=== PATIENT | male | born 1945 | race Caucasian/White ===

== ENCOUNTER → 2021-03-25 11:32 | Outpatient (CLI) | payer MEDICARE, OTHER, SELFPAY | PROVIDERS: PCP Family Medicine; Referring Provider Orthopaedic Surgery Orthopaedic Surgery of the Spine; Visit Provider Orthopaedic Surgery Orthopaedic Surgery of the Spine | DX: Z01.818 Encounter for other preprocedural examination (principal) | CPT/HCPCS: 93005; 93010 ==

== ENCOUNTER 2021-04-01 07:41 | Inpatient (IN) | payer MEDICARE, OTHER, SELFPAY ==
[2021-03-24 08:56] VITALS: BMI 31.4
[2021-04-01] VITALS (14 sets, daily range): BP systolic 109–148; BP diastolic 59–75; PULSE 68–100; RESP 10–18; TEMP 36.3–37; O2SAT 94–98; BMI 31.4
--- NOTE | 2021-04-01 | DI.RAD.S_ITS ---
PROCEDURE: XR LUMBAR SPINE 2-3V INDICATIONS: L3-4 L4-5 TLIF TECHNIQUE: 3 views of the lumbar spine were acquired. COMPARISON: None. FINDINGS: Bones: Intraoperative fluoroscopic views demonstrate pedicular screw and hernan fixation of the lumbar spine. IMPRESSION: Intraoperative fluoroscopic views of pedicular screw and hernan fixation of the lumbar spine. Dictated by: Isai Ruiz M.D. on 04/01/2021 at 15:15 Approved by: Isai Ruiz M.D. on 04/01/2021 at 15:15
--- NOTE | 2021-04-01 08:07 | SUR.OPER ---
Prone on spine table, head in foam head support, padded chest and pelvic supports, gel pad at knees, lower legs supported by pillows; nipples, genitalia and toes free of pressure, arms secured on foam padded arm boards at <90 degrees abduction. Tape over blanket at thigh secured to table.
[2021-04-01] MEDS: LACTATED RINGERS 1,000 ML 42 ML IV ×2 (08:35→11:43)
--- NOTE | 2021-04-01 08:52 | PM.PREOP ---
Pre-operative Note COVID-19 COVID-19 status: Negative Result date/Date tested (Pos, Neg/Pending): 03/30/21 Interval Note History & Physical reviewed/Exam performed by Physician: Yes Changes to H&P: No
[2021-04-01] MEDS: CEFAZOLIN 2 GM/20 ML SYRINGE IV ×2 (09:10→16:21)
[2021-04-01] MEDS: BUPIVACAINE 0.25% W/ EPI 30 ML VIAL INJ (09:56)
[2021-04-01] MEDS: BUPIVACAINE LIPOSOME 266 MG/20 ML VIAL INJ (09:57)
--- NOTE | 2021-04-01 13:33 | PM.OP.1 ---
Operative Date/Time/Diagnoses Date of procedure: 04/01/21 Time of procedure: 07:45 Pre-op diagnosis: 1. 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 Hx of laminectomies with post laminectomy syndrome 3. Lumbar scoliosis Post-op diagnosis: same Procedure & Clinicians Procedure: 1. L3-4, L4-5 Postero-lateral and posterior interbody fusion 2. L3-4, L4-5 interbody cage placement. 3. L3-4, L4-5 decompressive laminectomy with bilateral facetecomies 4. L3-4, L4-5 Posterior segmental instrumentation 5. Yeaddiss of bone marrow from iliac crest 6. Utilization of microsurgical technique and operating microscope 7. Robotic assisted navigation surgery Same procedure as scheduled: Yes Indications: Patient has been having chronic back pain and worsening lumbar radiculopathy. Patient has a history of lumbar laminectomy more than 15 years ago with worsening back pain and leg pain. Patient failed multiple conservative management with worsening pain weakness and numbness in his lower extremity. Patient has been having difficulty performing activity of daily living. After discussing risks benefits of treatment options, patient elected proceed with surgery. Surgeon: Luis Manuel Schilling Hydrotherapist: Erich Andrade Click Yes if Unassisted: No Anesthesia Type: General Operative Notes Closure Type: primary Specimen(s): none sent Prosthetic devices, grafts, tissues, transplants, or devices: Globus CREO MIS screws, Rise cages Applied: catheter Estimated Blood Loss (mL): 150 Blood products transfused: none Procedure in detail: Patient was seen in the preoperative area. Risks and benefits of the surgery was discussed with the patient. Informed consent was obtained from the patient and placed in the chart. Surgical site was marked. Patient was taken to the operative room. General anesthesia was administered. Prophylactic antibiotic was given to the patient less than 30 min before the incision was made. Patient was placed into a prone position on the Yonny table. Patient's back was then prepped and draped in the sterile fashion. Time-out was performed at this time. After patient was prepped and draped, patient's PSIS was palpated and marked bilaterally. Small 1 cm incision was made over the PSIS for placement of the reference probes. Two trocar was placed into the PSIS 1 on each side. The reference probe was attached to the trocar of the reference apparatus. At this time the C-arm imaging was used to confirm AP and lateral of L3, L4-L5 vertebrae and merged the C-arm imaging using the [employer] robotic navigation system with the CT of the lumbar spine. After successful merging was completed and confirmed, skin marker was used to tobi out the skin incision using the [employer] robotic arm. Bilateral incision was made at this time. Pre templated trajectory was used and guided using the [employer] robotic navigation system for bilateral L3 L4, L5 pedicle screw placement. This was done by using the robotic arm to guide the high-speed bur to make a cortical entry point. Next a drill was placed also using the robotic arm and guided using the navigation system drilling partially through bilateral L3, L4, L5 pedicles. Next L3, L4, L5 pedicle screws it was pre templated and measured was placed onto the power double bottom driver and inserted into the pedicles bilaterally. After all 6 screws were placed C-arm imaging was taken of both AP and lateral to confirm the placement. Excellent placement of the screws were confirmed and a matched precisely with the pre planned screw placement using the navigation system. MARs retractor was inserted using [employer]ivation guidence. Globus MARS retractors was placed inside the incision and docked onto the L3, L4 lamina. Using microsurgical technique and operating microscope, a L4, L5 laminectomy and L3-4, L4-5 facetectomy was performed using a Kerrison rongeur. Patient was found have severe lateral recess and neural foramen stenosis which was fully decompressed after the laminectomy facetectomy. More than 75% of the facets were removed during the process of decompression rendering L3-4, L4-5 level grossly unstable and required a fusion procedure at the same time. The disc space at L3-4, L4-5 was identified, and a total diskectomy was performed at L3-4, L4-5 level. The endplates were decorticated using a rasp and shaver. The total diskectomy and decortication was performed at L3-4, L4-5 level in order to to accomplish a L3-4, L4-5 fusion. The local bone from the laminectomy and facetectomy was saved for local bone grafting. After the total diskectomy and decortication was completed, Trifecta bone graft material was combined with local bone that was harvested earlier. Patient was found to have significant amount of epidural scarring from previous laminectomy. The scar tissue was carefully resected to further decompress the epidural space and lateral recess. At this time, a separate skin is incision was made over the iliac crest. A Jamshidi needle was inserted into the iliac crest through a separate skin incision. 5 cc of bone marrow aspiration was obtained through the separate skin incision using a Jamshidi needle from the iliac crest. The bone marrow aspiration was combined with local bone and the Trifecta bone grafting material. The bone grafting material was placed into the L3-4, L4-5 interbody space along with expandable cages. One cage each was inserted into the L3-4 L4-5 interbody space along with bone graft material. The cage was expanded to its maximum height using the torque limiting screwdriver. The disc preparation as well as the cage insertion were also performed under navigation guidance. After the cage was placed, AP and lateral C-arm imaging was taken to confirm placement of the cage and excellent position was confirmed. Globus MARS retractor was inserted and docked onto the L3-4, L4-5 posterolateral gutter on the right side. Using the power drill, posterior-lateral decortication was performed at L3-4, L4-5 level until bleeding cortical bone was identified. The remaining bone grafting material was placed into the L3-4, L4-5 posterior lateral gutter he order to accomplish posterolateral fusion at the L3-4, L4-5 level. At this time the tulips were attached to the L3, L4-L5 pedicle screw shanks. After measuring the length of the rods, they were inserted into the tulips of the pedicle screws and locked in place using locking caps and torque limiting screwdriver bilaterally. Total 6 caps and 2 titanium rods was used in order to complete the posterior instrumentation construct. After all the hardware was placed, and confirmed with AP and lateral C-arm imaging, the wound was then irrigated with sterile normal saline and packed with Ray-Chava gauze for 3 min to accomplish hemostasis. After the gauze was removed the deep fascia was closed with #1 Vicryl suture. The subcutaneous layer was closed with 2-0 Vicryl. The skin was closed with skin pebbles. Patient tolerated the procedure well. There were no complications. Neuro monitoring system was used to monitor patient's neurologic status throughout entire procedure. There was no disturbance of the neural monitoring signals throughout the case. Complications: none Post-operative Condition: stable Disposition: PACU Plan for aftercare: Admit to inpatient hospital
[2021-04-01] MEDS: fentaNYL 100 MCG/2 ML INJ IV (14:06)
[2021-04-01] MEDS: OXYCODONE/ACETAMINOPHEN 5/325 TABLET 1 TAB PO (14:29)
--- NOTE | 2021-04-01 14:49 | PC.NURSE ---
Day shift: Pt on unit from PACu at approx 1450. He is sleepy but is also A&Ox4. Dressing on his back is CDI. CMS intact. 2L NC 97%. VS WNL. Tolerating sips of ice water. Denies any chest pain or nausea. He was medicated with percocet in PACU just prior to transfer. Tolerated foot SCD's. Is complaining of itching in left eye. Bed alarm is on. Agrees to not get OOB w/o help from staff.
--- NOTE | 2021-04-01 15:16 | SUR.PHASEI ---
1433-Report given to Eula. Up to floor with tech Silvia assisting. Pt to room and dressing assessed with Eula RN.
[2021-04-01] MEDS: SODIUM CHLORIDE 0.9% 1,000 ML 100 ML IV (15:34)
[2021-04-01] MEDS: ATORVASTATIN 20 MG TABLET 40 MG PO (16:17)
[2021-04-01] MEDS: OXYCODONE IR 5 MG TABLET 10 MG PO (16:17)
[2021-04-01] MEDS: PANTOPRAZOLE DR 40 MG TABLET PO (16:17)
[2021-04-01] MEDS: GABAPENTIN 300 MG CAPSULE PO ×2 (16:17→20:42)
[2021-04-01] MEDS: DOCUSATE 100 MG CAPSULE PO (20:41)
[2021-04-01] MEDS: SENNOSIDES 8.6 MG TABLET 17.2 MG PO (20:42)
[2021-04-01] MEDS: hydroCHLOROthiazide 25 MG TABLET PO (20:42)
[2021-04-01] MEDS: METFORMIN HCL 500 MG TABLET 1000 MG PO (20:42)
[2021-04-01] MEDS: lisinopriL 20 MG TABLET PO (20:42)
--- NOTE | 2021-04-01 22:29 | PC.NURSE ---
Addendum entered by Reena Foster R.N. 04/02/21 07:38: BP after 2nd bolus was 73/39 with MAP of 47 and HR of 65. UOP this shift was 450cc. Dr Cano contacted by coordinator, Altagracia, and orders received for another 1000cc bolus and EKG. Addendum entered by Reena Foster R.N. 04/02/21 05:39: Patient's BP earlier was 66/32 on left arm when lying on right side and 84/45 on right arm while on back. Other VS within normal limits. Patient denies pain and is alert and oriented. Denies feeling dizzy or lightheaded. Dr Cano informed and orders received for a 500cc bolus and if still low after to give an additional bolus. BP after first bolus was 79/44 on right arm with him lying supine. 2nd bolus is currently infusing. Original Note: Patient is alert and oriented with rather flat affect. Breath sounds diminished but CTA. On oxygen at 1L/min per NC with sat of 95%. HRR. Denied nausea. BT hypoactive and denies passing flatus as yet. Indwelling catheter is patent. Is able to reposition onto side but prefers to lie on back; instructed in log roll. Dressing to back intact with small area of shadow drainage. Chronic bilateral foot neuropathy unchanged and other CMS is intact. Is wearing bilateral foot SCD's. States he has chronic back pain at 5/10 but declines pain medication. Fall risk score is moderate and bed alarm is activated.
[2021-04-02] VITALS (7 sets, daily range): BP systolic 66–105; BP diastolic 32–53; PULSE 65–88; RESP 16; TEMP 36.7–38.2; O2SAT 90–95
[2021-04-02] MEDS: OXYCODONE IR 5 MG TABLET 10 MG PO ×5 (00:03→18:43)
[2021-04-02] MEDS: CEFAZOLIN 2 GM/20 ML SYRINGE IV (00:52)
[2021-04-02] MEDS: SODIUM CHLORIDE 0.9% 1,000 ML 100 ML IV (00:52)
[2021-04-02] MEDS: LACTATED RINGERS 500 ML 1000 ML IV ×2 (04:42→05:21)
[2021-04-02 05:25] LABS: Hematocrit 32.2 % (41-53); Hemoglobin 11.2 g/dL (13.5-17.5)
[2021-04-02] MEDS: LACTATED RINGERS 1,000 ML 750 ML IV (06:46)
--- NOTE | 2021-04-02 07:49 | PM.PNPO.1 ---
Subjective Subjective Date Patient Seen: 04/02/21 Time Patient Seen: 07:49 Interval history: The main concern this morning is his hypotension, he has had 2 x 5 100 mL boluses. Now he has a 1000 mL bolus running. He is asymptomatic in terms of his hypotension, no dizziness no lightheadedness. He has baseline lower extremity numbness, right worse than left, unchanged from prior to surgery. His pain is mild to moderate. No fevers, chills, night sweats. Exam Vital Signs (past 8 hours): - 04/02/21 00:00 04/02/21 04:12 04/02/21 05:15 Temperature 98.0 F 98.4 F Pulse Rate 74 78 68 Respiratory Rate 16 16 Blood Pressure 97/53 L 66/32 L 79/44 L Pulse Oximetry 95 95 04/02/21 05:55 Temperature Pulse Rate 65 Respiratory Rate Blood Pressure 73/39 L Pulse Oximetry Oxygen Delivery Method Nasal Cannula Oxygen Flow Rate 1 Narrative Exam Narrative: Pleasant 76-year-old male, resting comfortably in bed, no acute distress. Dressing has some bloody drainage on the right lateral incision, no surrounding erythema or signs of a hematoma. Bilateral lower extremity: Sensation is decreased on the medial aspect of his bilateral ankles, right worse than left. Lower extremity motor functions are grossly intact, calves are soft and nontender to palpation. Objective Labs Result Diagrams: 04/02/21 04:50 Labs: Laboratory Results - last 24 hr 04/02/21 04:50 Hgb 11.2 L Hct 32.2 L [facility] Medical History Acid reflux Diabetes (~1999) Eczema Hearing impaired HLD (hyperlipidemia) HTN (hypertension) Lumbar post-laminectomy syndrome Neuropathy Sciatica Scoliosis of lumbosacral region due to degenerative disease of spine in adult Spondylolisthesis Surgical History History of bladder surgery (08/2019) History of carpal tunnel surgery of right wrist History of lumbar surgery (1987) History of lumbar surgery (03/2005) History of surgery (12/2020) Hx of appendectomy Hx of shoulder surgery Hx of tonsillectomy Social History household members: spouse and children Smoking Status: Never smoker alcohol intake: current Assessment & Plan Post-op Postoperative Procedures: Procedures Operation Date: 04/01/21 08:45 Actual Procedure Side Surgeon p L3-4, L4-5 TLIF w. posterior instrumentation -Robot Not Applicable Luis Manuel Schilling MD Postoperative day: 1 Postoperative status narrative: Status post TLIF -hypotension Postoperative plan narrative: -hold BP meds. Continue with bolus -reviewed EKG with Dr. Cano. The patient is not ill appearing. If this changes, we will get a hospitalist consult -continue with current pain regimen, encouraged more regular Tylenol. -mobilize with PT when improved hypotension. Limit bending, lifting, twisting. Weightbearing as tolerated front wheel walker -disposition home in 1-2 days, pending resolving hypotension
--- NOTE | 2021-04-02 08:50 | PC.NURSE ---
Day shift: BP meds not given this AM due to low BP and per MARK Worthington.
[2021-04-02] MEDS: DOCUSATE 100 MG CAPSULE PO ×2 (08:56→21:02)
[2021-04-02] MEDS: GABAPENTIN 300 MG CAPSULE PO ×3 (08:56→21:02)
[2021-04-02] MEDS: METFORMIN HCL 500 MG TABLET PO (08:56)
--- NOTE | 2021-04-02 09:20 | CM.DANOTE ---
Discharge Assessment Note Patient is 76yo Male admitted post TLIF surgical procedure performed by Dr. Schilling. Patient has been decreasing in ability to complete ADLs pre surgery with hopes to recover these abilities post procedure. Patient resides at home with his and granddaughter. Patient reports no HH or SNF history. Patient has adaptive devices available to him at home to assist with ambulation. Patient reports 2 steps to access his home which he was not having difficulty navigating prior to admission. Patient is hoping to discharge home when medically stable. PT and OT evaluations pending at this time. Plan: patient is pending PT & OT evaluations to determine level of therapeutic services required. Patient hopes to discharge home and attend to these needs as an outpatient. Patient's is able to transport patient home at time of discharge. Care Management team will continue to follow patient to assess for appropriate discharge planning needs. Ins: Medicare w/secondary of [employer] Preferred Leonides Jarvis [facility] Discharge Planning/Care Management Advanced directive, confirm from FAMILY Start: 04/01/21 17:22 Freq: Q24H Status: Active Protocol: Document 04/01/21 17:22 YAD (Rec: 04/01/21 17:23 YAD [id number]) Advance Directive, confirm on record Time 17:22 Person contacted spouse Copy received Yes CM Discharge Assessment Start: 04/02/21 09:15 Freq: Status: Active Protocol: Document 04/02/21 09:15 FJ (Rec: 04/02/21 09:20 FJ [id number]) Discharge Planning Assessment Assigned Payroll And Benefits Assistant Leonides Jarvis [facility] DPOA/Assigned Designee Name Spouse Nallely Fernández Contact Information [phone] Advance Directives? Yes: Working on currently Advance Directives on File No History Provided By Patient,Medical Record Has Patient been admitted in last 30 No days? Prior Living Arrangements House Household Members spouse,children Comment granddaughter resides with pt and pt's Type of transporation used prior to Drives own vehicle admit Independent with ADL's Yes: decreasing ability to complete ADLs prior to surgery Is patient alert and oriented? Yes Caregiver for Another No DME Already Rented / Owned FWW / Walker,Cane Comment Patient has standard no wheels walker for his personal use. Spouse has cane and wheeled walker with seat available for patient to use as needed. Patient/Family Preference Home with Home Health,OP PT Therapy,OP OT Therapy,OP [employer] Therapy Comment Pending PT OT evaluations Barriers to Discharge No Discharge Plan Home Community Services Physical Therapy,Occupational Therapy,Speech Language Pathology Transportation Arrangement Additional Comment no initiated referrals, pending OT PT evaluations Whiteboard Updated in Patient Room with Yes name and ext. # of Payroll And Benefits Assistant
--- NOTE | 2021-04-02 10:00 | PT.IIE ---
Current Diagnoses Other secondary scoliosis, lumbar region (04/01/21) Postlaminectomy syndrome, not elsewhere classified (04/01/21) Surgery Performed Operation Date: 04/01/21 08:45 Actual Procedures p L3-4, L4-5 TLIF w. posterior instrumentation -Robot(Not Applicable) - Luis Manuel Schilling MD Medical History (Last Reviewed 04/02/21 @ 07:51 by Elin Bejarano PA-C) Acid reflux Diabetes (~2000) Eczema Hearing impaired HLD (hyperlipidemia) HTN (hypertension) Lumbar post-laminectomy syndrome Neuropathy Sciatica Scoliosis of lumbosacral region due to degenerative disease of spine in adult Spondylolisthesis Physical Therapy Inpatient Evaluation/Re-Eval M1 PT/OT-IP Prior Functional Status Start: 04/02/21 12:03 Freq: NEEDED Status: Active Protocol: Document 04/02/21 10:00 AB (Rec: 04/02/21 12:17 AB [id number]) Medical Review Prior Functional Status Medical History Reviewed Yes Communication able to make needs known Mobility and Gait pt stated that he is independent with all mobilities and ambulation without AD Social History Household Members spouse,children Living Arrangements House Number of Floors (Floors) One Floor Number of Stairs To Enter/Railing? 3 steps to enter without rails Home Equipment Four Wheel Walker,Straight Cane Additional Social History Comment pt has his spouse and a 15 y/o grand daughter to assist him pt stated that he has a standard walker M2 PT-IP Current Condition Start: 04/02/21 12:03 Freq: NEEDED Status: Active Protocol: Document 04/02/21 10:00 AB (Rec: 04/02/21 12:17 AB [email or web address]) Physical Therapy Current Condition Current Condition Evaluation Date 04/02/21 Treatment Diagnosis s/o L3-4, L4-5 TLIF; difficulty in walking Onset Date 04/01/21 M3 PT-IP Subjective Start: 04/02/21 12:03 Freq: NEEDED Status: Active Protocol: Document 04/02/21 10:00 AB (Rec: 04/02/21 12:17 AB [id number]) Subjective Physical Therapy Visit Type Type Initial Evaluation Visit Start Time 10:00 Visit Stop Time 10:40 Total Visit Minutes 40 Number of ARTIFICIAL [employer]ASS [employer] MAKER Visits 0 Physical Therapy Visit Comments Patient Comments pt is agreeable to do PT Therapy Pain Assessment Pain When Pain Assessed At Rest Pain Present Pain Present Pain Reported Location Back Intensity 4 Pain Management Techniques Distraction,Modification of Treatment,Re-positioning, Timing of Activity with Medications M4 PT-IP Mobility and Gait Start: 04/02/21 12:03 Freq: NEEDED Status: Active Protocol: Document 04/02/21 10:00 AB (Rec: 04/02/21 12:17 AB [id number]) PT-Bed Mobility Assessment Rolling Level of Assist Moderate Assistance,Maximal Assistance Supine to Sit Supine to Sit Moderate Assistance,Maximum Assistance Sit to Supine Sit to Supine Moderate Assistance,Maximum Assistance PT-Transfer Assessment Sit to and From Stand Sit to and from Stand Moderate Assistance,Maximum Assistance,1 Person Assistance ,Use of Upper Extremities Equipment Transfer Assistive Device Gait Belt,Front Wheeled Walker Orthotic/Prosthetic Devices or Brace: No Comments Mobility Comments P monitored: supine: 90/44. educated pt on back precautions and log roll bed mobility. BP checked again prior to mobility: 99/45. pt completed supine to sit log roll mod to max A and max cues . pt sat on EOB CGA for sitting balance. BP sittin/54. Pt sat for a few more minutes and tolerated ~ 3 min without c/o dizziness/nausea/ lightheadedness. BP checked again: 110/53. pt completed sit to stand mod to max A and max cues. Mod to max A and cues for standing balance using FWW. BP in standin/50. pt requested to go back in bed. took a few steps using FWW towards HOB ~ 3 ft for positioning mod to max A. completed sit to supine mod to max A and max cues. positioned pt in bed. call light and table placed within reach. BP at end of tx session in supine: 107/54. Gait Assessment Gait Gait Assistance Required: Moderate Assistance,Maximum Assistance Distance (Feet) 3 Able to Maintain Weight Bearing Status Yes During Gait Assistive Devices Assistive Device Gait Belt,Front Wheeled Walker Orthotic/Prosthetic Devices or Brace: No Gait Deviations General Gait Pattern Antalgic,Decreased Stride Length,Decreased Feet Clearance Factors Limiting Gait Function Factors Limiting Gait Function Decreased Activity Tolerance, Decreased Sensation,Decreased Strength,Difficulty Following Directions,Limited Range of Motion,Pain,Poor Balance,Poor Safety Awareness Comments Gait Comments pls refer to mobility section for details PT-Balance Assessment Sitting Balance and Reactions Static Sitting Balance Ability Good Dynamic Sitting Balance Ability Fair Standing Balance and Reactions Static Standing Balance Ability Poor Dynamic Standing Balance Ability Poor Device Used FWW M5 PT-IP Objective Assessments Start: 04/02/21 12:03 Freq: NEEDED Status: Active Protocol: Document 04/02/21 10:00 AB (Rec: 04/02/21 12:17 AB [id number]) Orientation Orientation/Cognition Level of Alertness Alert Orientation Name Language Function Ability Hard of Hearing Safety Awareness Decreased Safety Awareness Memory Description Short Term Impaired Gross Range of Motion Lower Extremity ROM Assessment Within Functional Limits Strength Lower Extremity Strength Assessment Left Impaired Hip 3+/5 Knee 3+/5 Coordination Assessment Gross Coordination Gross Coordination WNL Sensation Assessment Sensation Gross Sensation Right LE Impaired,Left LE Impaired Sensation Description Numbness Muscle Tone Muscle Tone WNL Yes M6 PT-IP Treatment Start: 04/02/21 12:03 Freq: NEEDED Status: Active Protocol: Document 04/02/21 10:00 AB (Rec: 04/02/21 12:17 AB [email or web address]) Physical Therapy Treatment Education Education Provided Precautions,Weight Bearing Status,Safety M7 PT-IP Assessment and Plan Start: 04/02/21 12:03 Freq: NEEDED Status: Active Protocol: Document 04/02/21 10:00 AB (Rec: 04/02/21 12:17 AB [email or web address]) PT Summary Assessment and Plan Potential Rehabilitation Potential Good Status of Condition at Evaluation Evolving Summary Impairments Pain,ROM,Strength,Balance, Coordination,Sensation,Tone, Cognition,Bed Mobility, Transfers,Gait,Activity Tolerance Assessment Summary pt requiring mod to max A with mobility using FWW. pt unable to tolerate much activity and has low BP but stable. will continue to assess progress. pt plans to go home and spouse to assist. will condut caregiver training when appropriate. will need to complete stair climbing training prior to d/c home. Goals Bed Mobility Goal Standby Assistance Transfer Goal Standby Assistance,Front Wheeled Walker Gait Goal Standby Assistance,Front Wheel Walker Gait Distance 200 Other Goals up/down 3 steps SPC/[employer] SBA Days to Meet Goals 5 Frequency of Treatment Frequency Of Treatment Twice a Day Treatment Plan Physical Therapy Treatment Plan Bed Mobility Training,Transfer Training,Gait Training, Therapeutic Exercise,Balance Retraining,Post Op Education, Discharge Planning,Hot or Cold Pack,Neuromuscular Re-ed, Coordination Retraining,Manual Therapy Precautions Lumbar Precautions Log Roll,No Twisting,Limit Bending,Lifting Restriction of 10 lbs,Gait Belt above Incisional Area Recommendations To Nursing Amount of Assist Needed 2 Person Assist Discharge Recommendations PT Discharge Recommendations Home with 08/11 Assist Available,Home Health Equipment Needed for Home Before FWW Discharge Transportation Needs at Discharge Private Vehicle,Wheelchair/ Cabulance
--- NOTE | 2021-04-02 10:28 | PC.NURSE ---
Day shift: BP improving. BP while standing 105/50 and asymptomatic. Pt working with PT at this time (1025).
--- NOTE | 2021-04-02 12:02 | OT.IPNOTE ---
Attempted to see pt for OT eval and pt states not up to it today as tired and in pain. Pt also having low BP. Pt was able to see PT earlier and encouraged him to get up again for PT later this PM. To check on pt tomorrow for OT eval.
--- NOTE | 2021-04-02 13:50 | PT.IPTN ---
Current Diagnoses Other secondary scoliosis, lumbar region (04/01/21) Postlaminectomy syndrome, not elsewhere classified (04/01/21) Surgery Performed Operation Date: 04/01/21 08:45 Actual Procedures p L3-4, L4-5 TLIF w. posterior instrumentation -Robot(Not Applicable) - Luis Manuel Schilling MD Physical Therapy Treatment Note M2 PT-IP Current Condition Start: 04/02/21 12:03 Freq: NEEDED Status: Active Protocol: Document 04/02/21 10:00 AB (Rec: 04/02/21 12:17 AB [email or web address]) Physical Therapy Current Condition Current Condition Evaluation Date 04/02/21 Treatment Diagnosis s/o L3-4, L4-5 TLIF; difficulty in walking Onset Date 04/01/21 M3 PT-IP Subjective Start: 04/02/21 12:03 Freq: NEEDED Status: Active Protocol: Document 04/02/21 13:50 AB (Rec: 04/02/21 14:44 AB [id number]) Subjective Physical Therapy Visit Type Type Treatment Note Visit Start Time 13:50 Visit Stop Time 14:25 Total Visit Minutes 35 Number of SENIOR JAVA SOFTWARE DEVELOPER Visits 0 Physical Therapy Visit Comments Patient Comments pt is agreeable to do PT Therapy Pain Assessment Pain When Pain Assessed At Rest Pain Present Pain Present Pain Reported Location Back Intensity 2 Pain Management Techniques Distraction,Modification of Treatment,Re-positioning, Timing of Activity with Medications M4 PT-IP Mobility and Gait Start: 04/02/21 12:03 Freq: NEEDED Status: Active Protocol: Document 04/02/21 13:50 AB (Rec: 04/02/21 14:44 AB [id number]) PT-Bed Mobility Assessment Rolling Type of Rolling Log Rolling Level of Assist Minimal Assistance Supine to Sit Supine to Sit Moderate Assistance,1 Person Assistance,Bedrails Sit to Supine Sit to Supine Standby Assistance,Bedrails PT-Transfer Assessment Sit to and From Stand Sit to and from Stand Minimal Assistance,1 Person Assistance,Use of Upper Extremities Equipment Transfer Assistive Device Gait Belt,Front Wheeled Walker Orthotic/Prosthetic Devices or Brace: No Comments Mobility Comments BP monitored: supine: 95/46. pt completed log roll supine to sit mod A and cues. pt able to sit on EOB SBA. No c/ o dizziness/lightheadedness. BP sittin/52. pt able to tolerate sitting on EOB without any complaints. BP checked again: 101/49. pt completed sit to stand min A and cues and ambulated forward /backwards ~ 20 ft using FWW min A. pt sat back on EOB. BP checked: 107/58. pt completed log roll sit to supine SBA. positioned pt in bed. call light and table placed within reach. Gait Assessment Gait Gait Assistance Required: Minimum Assistance,1 Person Assist Distance (Feet) 20 Able to Maintain Weight Bearing Status Yes During Gait Assistive Devices Assistive Device Gait Belt,Front Wheeled Walker Orthotic/Prosthetic Devices or Brace: No Gait Deviations General Gait Pattern Decreased Stride Length, Decreased Feet Clearance,Step- to Gait Factors Limiting Gait Function Factors Limiting Gait Function Decreased Activity Tolerance, Decreased Sensation,Decreased Strength,Limited Range of Motion,Pain,Poor Balance,Poor Safety Awareness Comments Gait Comments pls refer to mobility section for details M5 PT-IP Objective Assessments Start: 04/02/21 12:03 Freq: NEEDED Status: Active Protocol: Document 04/02/21 10:00 AB (Rec: 04/02/21 12:17 AB [id number]) Orientation Orientation/Cognition Level of Alertness Alert Orientation Name Language Function Ability Hard of Hearing Safety Awareness Decreased Safety Awareness Memory Description Short Term Impaired Gross Range of Motion Lower Extremity ROM Assessment Within Functional Limits Strength Lower Extremity Strength Assessment Left Impaired Hip 3+/5 Knee 3+/5 Coordination Assessment Gross Coordination Gross Coordination WNL Sensation Assessment Sensation Gross Sensation Right LE Impaired,Left LE Impaired Sensation Description Numbness Muscle Tone Muscle Tone WNL Yes M6 PT-IP Treatment Start: 04/02/21 12:03 Freq: NEEDED Status: Active Protocol: Document 04/02/21 13:50 AB (Rec: 04/02/21 14:44 AB [email or web address]) Physical Therapy Treatment Education Education Provided Precautions,Post-Op Packet, Safety M7 PT-IP Assessment and Plan Start: 04/02/21 12:03 Freq: NEEDED Status: Active Protocol: Document 04/02/21 13:50 AB (Rec: 04/02/21 14:44 AB [email or web address]) PT Summary Assessment and Plan Potential Rehabilitation Potential Good Summary Impairments Pain,ROM,Strength,Balance, Coordination,Sensation,Tone, Cognition,Bed Mobility, Transfers,Gait,Activity Tolerance Progress Towards Goals Slow Progress due to Activity Tolerance Assessment Summary pt continues to have low BP but is stable: 95/46- 112/52 and has not complaints of dizziness/lightheadedness. able to ambulate using FWW min A and toelrated 25 ft using fWW. Caregiver training and stair climbing training will be conducted when appropriate. will continue to assess progress. Goals Bed Mobility Goal Standby Assistance Transfer Goal Standby Assistance,Front Wheeled Walker Gait Goal Standby Assistance,Front Wheel Walker Gait Distance 200 Other Goals up/down 3 steps SPC/GAS DESULFURIZER SBA Days to Meet Goals 5 Treatment Plan Physical Therapy Treatment Plan Bed Mobility Training,Transfer Training,Gait Training, Therapeutic Exercise,Balance Retraining,Post Op Education, Discharge Planning,Hot or Cold Pack,Neuromuscular Re-ed, Coordination Retraining,Manual Therapy Precautions Lumbar Precautions Log Roll,No Twisting,Limit Bending,Lifting Restriction of 10 lbs,Gait Belt above Incisional Area Recommendations To Nursing Amount of Assist Needed 1 Person Assist Discharge Recommendations PT Discharge Recommendations Home with 08/11 Assist Available,Home Health Equipment Needed for Home Before FWW Discharge Transportation Needs at Discharge Private Vehicle,Wheelchair/ Cabulance
[2021-04-02] MEDS: PANTOPRAZOLE DR 40 MG TABLET PO (15:53)
[2021-04-02] MEDS: ATORVASTATIN 20 MG TABLET 40 MG PO (15:53)
[2021-04-02] MEDS: hydrOXYzine pamoate 25 MG CAPSULE PO (18:43)
[2021-04-02] MEDS: METFORMIN HCL 500 MG TABLET 1000 MG PO (21:02)
[2021-04-02] MEDS: SENNOSIDES 8.6 MG TABLET 17.2 MG PO (21:02)
[2021-04-02] MEDS: ACETAMINOPHEN 325 MG TABLET 650 MG PO (21:08)
[2021-04-03] VITALS (8 sets, daily range): BP systolic 95–132; BP diastolic 52–62; PULSE 71–89; RESP 15–18; TEMP 37.2–38.6; O2SAT 92–95
[2021-04-03] MEDS: HYDROMORPHONE 0.5 MG INJ IV ×2 (04:33→09:30)
[2021-04-03] MEDS: ACETAMINOPHEN 325 MG TABLET 650 MG PO ×3 (04:33→20:08)
[2021-04-03] MEDS: DOCUSATE 100 MG CAPSULE PO ×2 (09:32→20:10)
[2021-04-03] MEDS: GABAPENTIN 300 MG CAPSULE PO ×3 (09:32→20:10)
[2021-04-03] MEDS: METFORMIN HCL 500 MG TABLET PO (09:32)
[2021-04-03] MEDS: OXYCODONE IR 5 MG TABLET 10 MG PO ×4 (09:32→20:15)
[2021-04-03] MEDS: hydrOXYzine pamoate 25 MG CAPSULE PO (09:32)
--- NOTE | 2021-04-03 10:07 | P.PN_ITS ---
Subjective Subjective Date Patient Seen: 04/03/21 Time Patient Seen: 10:07 Interval history: Patient is complaining of moderate low back pain. He is also somewhat dizzy and has had some orthostatic hypotension. His blood pressure meds have been held. He needed IV Dilaudid this morning. He is concerned about being discharged home as his will be his caregiver and he is concerned about her caregiving abilities. Exam Vital Signs (past 8 hours): - 04/03/21 04:00 04/03/21 09:35 Temperature 101.4 F H 99.9 F H Pulse Rate 81 Respiratory Rate 15 Blood Pressure 112/57 L Pulse Oximetry 95 Oxygen Delivery Method Nasal Cannula Oxygen Flow Rate 0 Narrative Exam Narrative: Pleasant 76-year-old male, resting comfortably in bed, no acute distress. Dressing demonstrates mild bloody discharge bilaterally, no surrounding erythema or edema or signs of a hematoma. Bilateral lower extremity: Motor functions are grossly intact, sensation is grossly intact to light touch, calves are soft nontender to palpation. Objective Labs Result Diagrams: 04/02/21 04:50 PFSH Medical History Acid reflux Diabetes (~1999) Eczema Hearing impaired HLD (hyperlipidemia) HTN (hypertension) Lumbar post-laminectomy syndrome Neuropathy Sciatica Scoliosis of lumbosacral region due to degenerative disease of spine in adult Spondylolisthesis Surgical History History of bladder surgery (08/2019) History of carpal tunnel surgery of right wrist History of lumbar surgery (1987) History of lumbar surgery (03/2005) History of surgery (12/2020) Hx of appendectomy Hx of shoulder surgery Hx of tonsillectomy Social History household members: spouse and children Smoking Status: Never smoker alcohol intake: current Assessment & Plan Post-op Postoperative Procedures: Procedures Operation Date: 04/01/21 08:45 Actual Procedure Side Surgeon p L3-4, L4-5 TLIF w. posterior instrumentation -Robot Not Applicable Luis Manuel Schilling MD Postoperative day: 2 Postoperative status: marginal pain control Postoperative status narrative: Stable status post TLIF -hypotension Postoperative plan narrative: -mobilize with PT. Limit bending, lifting, twisting. Weightbearing as tolerated with front wheel walker -continue with current pain regimen. I encouraged him to stick with more r egular oral meds rather than the IV pain meds -encouraged incentive spirometer to to low-grade postop fever of 101.4. If anything changes, we will likely need to get some labs including a CBC plus a UA with reflex culture. -likely DC home tomorrow. Possible sniff, depending on progress with PT.
--- NOTE | 2021-04-03 10:43 | PT.IPTN ---
Current Diagnoses Other secondary scoliosis, lumbar region (04/01/21) Postlaminectomy syndrome, not elsewhere classified (04/01/21) Surgery Performed Operation Date: 04/01/21 08:45 Actual Procedures p L3-4, L4-5 TLIF w. posterior instrumentation -Robot(Not Applicable) - Luis Manuel Schilling MD Physical Therapy Treatment Note M2 PT-IP Current Condition Start: 04/02/21 12:03 Freq: NEEDED Status: Active Protocol: Document 04/02/21 10:00 AB (Rec: 04/02/21 12:17 AB [id number]) Physical Therapy Current Condition Current Condition Evaluation Date 04/02/21 Treatment Diagnosis s/o L3-4, L4-5 TLIF; difficulty in walking Onset Date 04/01/21 M3 PT-IP Subjective Start: 04/02/21 12:03 Freq: NEEDED Status: Active Protocol: Document 04/03/21 10:10 KS (Rec: 04/03/21 11:43 KS [id number]) Subjective Physical Therapy Visit Type Type Treatment Note Visit Start Time 10:10 Visit Stop Time 10:43 Total Visit Minutes 33 Number of MARKET ANALYST Visits 1 Physical Therapy Visit Comments Patient Comments pt is agreeable to do PT Therapy Pain Assessment Pain When Pain Assessed At Rest Pain Present Pain Present Denied Pain M4 PT-IP Mobility and Gait Start: 04/02/21 12:03 Freq: NEEDED Status: Active Protocol: Document 04/03/21 10:10 [place] (Rec: 04/03/21 11:43 KS [id number]) PT-Bed Mobility Assessment Rolling Type of Rolling Log Rolling Level of Assist Contact Guard Assistance Supine to Sit Supine to Sit Contact Guard Assistance,1 Person Assistance,Head of Bed Elevated,Bedrails Sit to Supine Sit to Supine Minimal Assistance,1 Person Assistance,Head of Bed Elevated,Bedrails Scooting Scooting to Edge of Bed Contact Guard Assistance PT-Transfer Assessment Sit to and From Stand Sit to and from Stand Minimal Assistance,1 Person Assistance,Use of Upper Extremities Equipment Transfer Assistive Device Gait Belt,Front Wheeled Walker Orthotic/Prosthetic Devices or Brace: No Transfers Transfer Destination Bed Transfer Technique pt ambulated w/ FWW Transfer Ability Level of Assist Contact Guard Assistance, Minimal Assistance,1 Person Assistance,Use of Upper Extremities Comments Mobility Comments Pt in bed upon arrival from therapy and able to recall 3/3 spinal precautions. CGA and cues for logroll and sup<>sit, CGA for scooting to EOB. Pt sit<>stand w/ FWW and Min A w/ cues for hand placement. Pt then ambulated ~20 ft in room w/ FWW CGA. Pt ambulated very slowly and needed increased time for ambulation and mobility. Decreased stride and foot clearance, pt reporting feelings of weakness. Pt returned to bed Min A for LE elevation into bed and performed ankle pumps. Pt left in bed w/ alarm on and all needs in reach. Gait Assessment Gait Gait Assistance Required: Contact Guard Assist,1 Person Assist Distance (Feet) 20 Able to Maintain Weight Bearing Status Yes During Gait Assistive Devices Assistive Device Gait Belt,Front Wheeled Walker Orthotic/Prosthetic Devices or Brace: No Gait Deviations General Gait Pattern Decreased Stride Length, Decreased Feet Clearance, Flexed Trunk Factors Limiting Gait Function Factors Limiting Gait Function Decreased Activity Tolerance, Decreased Sensation,Decreased Strength,Limited Range of Motion,Pain,Poor Balance,Poor Safety Awareness Comments Gait Comments pls refer to mobility section for details PT-Balance Assessment Sitting Balance and Reactions Static Sitting Balance Ability Good Dynamic Sitting Balance Ability Fair Standing Balance and Reactions Static Standing Balance Ability Fair Dynamic Standing Balance Ability Fair Device Used FWW M5 PT-IP Objective Assessments Start: 04/02/21 12:03 Freq: NEEDED Status: Active Protocol: Document 04/02/21 10:00 AB (Rec: 04/02/21 12:17 AB [id number]) Orientation Orientation/Cognition Level of Alertness Alert Orientation Name Language Function Ability Hard of Hearing Safety Awareness Decreased Safety Awareness Memory Description Short Term Impaired Gross Range of Motion Lower Extremity ROM Assessment Within Functional Limits Strength Lower Extremity Strength Assessment Left Impaired Hip 3+/5 Knee 3+/5 Coordination Assessment Gross Coordination Gross Coordination WNL Sensation Assessment Sensation Gross Sensation Right LE Impaired,Left LE Impaired Sensation Description Numbness Muscle Tone Muscle Tone WNL Yes M6 PT-IP Treatment Start: 04/02/21 12:03 Freq: NEEDED Status: Active Protocol: Document 04/03/21 10:10 KS (Rec: 04/03/21 11:43 KS [id number]) Physical Therapy Treatment Exercises Exercises Ankle Pumps M7 PT-IP Assessment and Plan Start: 04/02/21 12:03 Freq: NEEDED Status: Active Protocol: Document 04/03/21 10:10 KS (Rec: 04/03/21 11:43 KS [id number]) PT Summary Assessment and Plan Potential Rehabilitation Potential Good Summary Impairments Pain,ROM,Strength,Balance, Coordination,Sensation,Tone, Cognition,Bed Mobility, Transfers,Gait,Activity Tolerance Progress Towards Goals Slow Progress due to Activity Tolerance Assessment Summary Pt CGA to Min A for bed mobility and CGA for 20 ft ambulation w/ FWW. Pt requires increased time for all mobility and takes very short steps w/ minimal foot clearance. If going home, pt will need to improve tolerance for activity, complete stair training and caregiver training when appropriate. Will continue to assess progress. Goals Bed Mobility Goal Standby Assistance Transfer Goal Standby Assistance,Front Wheeled Walker Gait Goal Standby Assistance,Front Wheel Walker Gait Distance 200 Other Goals up/down 3 steps SPC/SUPERVISOR ASSEMBLY DEPARTMENT SBA Days to Meet Goals 5 Frequency of Treatment Frequency Of Treatment Twice a Day Treatment Plan Physical Therapy Treatment Plan Bed Mobility Training,Transfer Training,Gait Training, Therapeutic Exercise,Balance Retraining,Post Op Education, Discharge Planning,Hot or Cold Pack,Neuromuscular Re-ed, Coordination Retraining,Manual Therapy Precautions Lumbar Precautions Log Roll,No Twisting,Limit Bending,Lifting Restriction of 10 lbs,Gait Belt above Incisional Area Recommendations To Nursing Amount of Assist Needed 1 Person Assist Discharge Recommendations PT Discharge Recommendations Home with 08/11 Assist Available,Home Health Equipment Needed for Home Before FWW Discharge Transportation Needs at Discharge Private Vehicle,Wheelchair/ Cabulance
--- NOTE | 2021-04-03 13:31 | OT.IP.EVAL ---
Current Diagnoses Other secondary scoliosis, lumbar region (04/01/21) Postlaminectomy syndrome, not elsewhere classified (04/01/21) Surgery Performed Operation Date: 04/01/21 08:45 Actual Procedures p L3-4, L4-5 TLIF w. posterior instrumentation -Robot(Not Applicable) - Luis Manuel Schilling MD Past Medical History (Last Reviewed 04/03/21 @ 10:27 by Elin Bejarano PA-C) Acid reflux Diabetes (~1999) Eczema Hearing impaired History of bladder surgery (08/2019) History of carpal tunnel surgery of right wrist History of lumbar surgery (1987) History of lumbar surgery (03/2005) History of surgery (12/2020) HLD (hyperlipidemia) HTN (hypertension) Hx of appendectomy Hx of shoulder surgery Hx of tonsillectomy Lumbar post-laminectomy syndrome Neuropathy Sciatica Scoliosis of lumbosacral region due to degenerative disease of spine in adult Spondylolisthesis Surgical History (Last Reviewed 04/03/21 @ 10:27 by Elin Bejarano PA-C) History of bladder surgery (08/2019) History of carpal tunnel surgery of right wrist History of lumbar surgery (1987) History of lumbar surgery (03/2005) History of surgery (12/2020) Hx of appendectomy Hx of shoulder surgery Hx of tonsillectomy Occupational Therapy Inpatient Evaluation/Re-Eval M1 PT/OT-IP Prior Functional Status Start: 04/02/21 12:03 Freq: NEEDED Status: Active Protocol: Document 04/03/21 13:00 [facility] (Rec: 04/03/21 14:22 [facility] [id number]) Medical Review Prior Functional Status Medical History Reviewed Yes Communication able to make needs known Mobility and Gait pt stated that he is independent with all mobilities and ambulation without AD Activities of Daily Living and IADL's Pt states he was completely independent or all ADl and IADL needs but was in pain. Social History Household Members spouse,children Living Arrangements House Number of Floors (Floors) One Floor Number of Stairs To Enter/Railing? 3 steps to enter without rails Home Equipment Four Wheel Walker,Straight Cane Additional Social History Comment pt has his spouse and a 15 y/o grand daughter to assist him pt stated that he has a standard walker M2 OT-IP Current Condition Start: 04/03/21 13:56 Freq: Status: Active Protocol: Document 04/03/21 13:00 [facility] (Rec: 04/03/21 14:22 [facility] [id number]) Occupational Therapy Current Condition Current Condition Evaluation Date 04/03/21 Treatment Diagnosis S/p L3-4, L4-5 TLIF, decreased mobility Diagnosis Onset Date 04/01/21 Post Operative Precautions Lumbar Precautions Log Roll,No Twisting,Limit Bending,Lifting Restriction of 10 lbs,Gait Belt above Incisional Area M3 OT- IP Subjective and Pain Start: 04/03/21 13:56 Freq: Status: Active Protocol: Document 04/03/21 13:00 [facility] (Rec: 04/03/21 14:22 [facility] [id number]) OT- Subjective Occupational Therapy Visit Type Type Initial Evaluation Visit Start Time 13:00 Visit Stop Time 13:31 Total Visit Minutes 31 Occupational Therapy Visit Comments Patient Comments Pt agreed to get up after lunch as refused earlier. Patient/Caregiver Goals To go home. OT Pain Assessment Pain When Pain Assessed At Rest Pain Present Pain Present Pain Reported Location Back Intensity 6 Scale Used Numeric (0 - 10) M4 OT- IP ADL's Start: 04/03/21 13:56 Freq: Status: Active Protocol: Document 04/03/21 13:00 [facility] (Rec: 04/03/21 14:22 [facility] [id number]) OT ADL-Oral Care General Eval Oral Care Ability Standby Assistance Comments Oral Care Comments Pt educated to spit into a cup in order to best follow his back precautions. OT ADL-Dressing General Eval Lower Body Dressing Ability Maximum Assistance Areas Needing Assistance Socks Comments OT Dressing Comments Educated pt to regarding sock aid and label rewinder use of LB dressing. Pt insistent that his will be able to assist pt for all needs. OT ADL-Toileting Comments OT Toileting Comments Pt not having to use the toilet at this time. Pt will need assist to wipe as pt attempted and not able to reach. Pt states his will assist him at home. OT ADL-Bathing Comments OT Bathing Comments Pt would benefit from a shower chair at home to use. M5 OT- IP IADL's Start: 04/03/21 13:56 Freq: Status: Active Protocol: Document 04/03/21 13:00 [facility] (Rec: 04/03/21 14:22 [facility] [id number]) OT-Instrumental Activities of Daily Living Home Safety Awareness Home Safety Comments Pt is very groggy and would best to have his assist for all needs. M6 OT- IP Functional Cognition Start: 04/03/21 13:56 Freq: Status: Active Protocol: Document 04/03/21 13:00 [facility] (Rec: 04/03/21 14:22 [facility] [id number]) Cognitive Factors Limiting Selfcare Function Cognitive Ability Level of Alertness Alert Patient Orientation Name,Place,Situation Attention Span Ability Capable of Focused Attention, Capable of Sustained Attention Ability to Follow Commands Able to Follow One Step Commands with Increased Time, Able to Follow One Step Commands with Repetition Safety Awareness Decreased Ability to Apply Precautions Cognitive Comments Cognitive Assessment Comments Pt very slow to move and respond at times. Pt states is very tired. Pt now needing simple concrete cues to follow . OT- Vision and Hearing OT- Hearing Assessment OT- Hearing Assessment Hearing Impaired OT- Vision Assessment Visual Acuity Glasses All The Time M7 OT- IP Mobility and Balance Start: 04/03/21 13:56 Freq: Status: Active Protocol: Document 04/03/21 13:00 [facility] (Rec: 04/03/21 14:22 [facility] [id number]) OT- Bed Mobility Assessment Rolling Type of Rolling Roll to Right Level of Assistance Minimal Assistance Supine to Sit Supine to Sit Assist Minimal Assistance Sit to Supine Sit to Supine Assist Minimal Assistance OT-Transfer Assessment Sit to and From Stand Sit to and from Stand Minimal Assistance Transfers Transfer Ability Standby Assistance,Contact Guard Assistance Technique Transfer Destination Bed,Chair Transfer Technique Stand Step Pivot Devices Transfer Assistive Devices Gait Belt,Front Wheeled Walker Comments Mobility Comments Pt moving very slowly and initially just side stepping and needing cues to take steps forwards and then turn with FWW. OT- Gait Assessment Comments Gait Ability Comments CGA/SBA with FWW. OT- Balance Assessment Sitting Balance and Reactions Static Sitting Balance Ability Good Dynamic Sitting Balance Ability Fair Standing Balance and Reactions Static Standing Balance Ability Fair M8 OT- IP Objective Assessments Start: 04/03/21 13:56 Freq: Status: Active Protocol: Document 04/03/21 13:00 [facility] (Rec: 04/03/21 14:22 [facility] [id number]) OT-Muscle Tone Assessment Muscle Tone WNL Yes M9 OT- IP Assessment and Plan Start: 04/03/21 13:56 Freq: Status: Active Protocol: Document 04/03/21 13:00 [facility] (Rec: 04/03/21 14:22 [facility] [id number]) OT Summary Assessment and Plan Potential Rehabilitation Potential Good Analytic Complexity at Evaluation Low Summary OT Impairments Pain,Balance,Functional Cognition,Functional Mobility, Grooming,Dressing,Toileting, Bathing,Toilet Transfers, Shower Transfers,Activity Tolerance Progress Towards Goals Slow Progress due to Pain,Slow Progress due to Activity Tolerance,Slow Progress due to Cognition Assessment Summary Pt low complexity and main barriers are pain, steps and now needing assist for all ADl and mobility needs. Pt is slow to move and insists that his will be able to assist him at home. Pending progress and caregiver training, hopefully pt to go home however if caregiver training does not go well , pt may need short skilled rehab. Goals Grooming Goal Independent Dressing Goal Independent Toileting Goal Minimal Assistance Bathing Goal Minimal Assistance Toilet Transfer Goal Independent Shower Transfer Goal Standby Assistance Patient/Caregiver Education Goal Demonstrate Post-Op Precautions,Caregiver Independent Assisting Patient Days to Meet Goals 7 Frequency of Treatment Frequency Of Treatment Once a Day Treatment Plan OT Treatment Plan ADL Training,Functional Cognition Training,Functional Mobility,Patient/Family Education,Discharge Planning Discharge Recommendations OT Discharge Recommendations Home with 08/11 Assist Available,Home Health,SNF Rehab,Home vs SNF Home Equipment Needs shower chair, FWW Transportation Needs at Discharge Private Vehicle,Wheelchair/ Cabulance
--- NOTE | 2021-04-03 14:00 | PT-IP ANOTE ---
Pt refused PT this afternoon due to fatigue, spoke w/ pts and scheduled caregiver training for 10:30 AM tomorrow 04/04. Pts will secure FWW and shower chair for pt at home. Pt at this time refusing SNF, however having difficulty with mobilization.
--- NOTE | 2021-04-03 14:46 | PT.IPTN ---
Current Diagnoses Other secondary scoliosis, lumbar region (04/01/21) Postlaminectomy syndrome, not elsewhere classified (04/01/21) Surgery Performed Operation Date: 04/01/21 08:45 Actual Procedures p L3-4, L4-5 TLIF w. posterior instrumentation -Robot(Not Applicable) - Luis Manuel Schilling MD Physical Therapy Treatment Note M2 PT-IP Current Condition Start: 04/02/21 12:03 Freq: NEEDED Status: Active Protocol: Document 04/02/21 10:00 AB (Rec: 04/02/21 12:17 AB [id number]) Physical Therapy Current Condition Current Condition Evaluation Date 04/02/21 Treatment Diagnosis s/o L3-4, L4-5 TLIF; difficulty in walking Onset Date 04/01/21 M3 PT-IP Subjective Start: 04/02/21 12:03 Freq: NEEDED Status: Active Protocol: Document 04/03/21 14:32 KS (Rec: 04/03/21 14:56 KS [id number]) Subjective Physical Therapy Visit Type Type Treatment Note Visit Start Time 14:32 Visit Stop Time 14:46 Total Visit Minutes 14 Number of SERVICE CENTER ASSISTANT Visits 2 Physical Therapy Visit Comments Patient Comments Pt wanting to return to bed. Therapy Pain Assessment Pain When Pain Assessed During Mobility Pain Present Pain Present Pain Reported Location Back Intensity 6 Scale Used Numeric (0 - 10) Pain Behaviors Guarding Pain Management Techniques Distraction,Modification of Treatment,Re-positioning M4 PT-IP Mobility and Gait Start: 04/02/21 12:03 Freq: NEEDED Status: Active Protocol: Document 04/03/21 14:32 KS (Rec: 04/03/21 14:56 KS [id number]) PT-Bed Mobility Assessment Rolling Type of Rolling Log Rolling Level of Assist Contact Guard Assistance Sit to Supine Sit to Supine Moderate Assistance,1 Person Assistance Scooting Scooting to Edge of Bed Contact Guard Assistance PT-Transfer Assessment Sit to and From Stand Sit to and from Stand Minimal Assistance,1 Person Assistance,Use of Upper Extremities Equipment Transfer Assistive Device Gait Belt,Front Wheeled Walker Orthotic/Prosthetic Devices or Brace: No Transfers Transfer Destination Chair Transfer Technique pt ambulated w/ FWW Transfer Ability Level of Assist Contact Guard Assistance, Minimal Assistance,1 Person Assistance,Use of Upper Extremities Comments Mobility Comments Pt in chair upon arrival and requesting to get back in bed, agreeable to walking to opposite side of bed. Min A for sit<>stand w/ FWW. Pt then ambulated ~15 ft to opposite side of bed w/ FWW and CGA. Pt continues to require increased time with mobility and ambulated very slowly w/ decreased stride and foot clearance. Pt c/o increased pain w/ mobility. Mod A for sit<>sup for LE elevation into bed. Pt left in bed w/ all needs in reach and alarm on. Gait Assessment Gait Gait Assistance Required: Contact Guard Assist,1 Person Assist Distance (Feet) 15 Able to Maintain Weight Bearing Status Yes During Gait Assistive Devices Assistive Device Gait Belt,Front Wheeled Walker Gait Deviations General Gait Pattern Decreased Stride Length, Decreased Feet Clearance, Flexed Trunk Factors Limiting Gait Function Factors Limiting Gait Function Decreased Activity Tolerance, Decreased Sensation,Decreased Strength,Limited Range of Motion,Pain,Poor Balance,Poor Safety Awareness Comments Gait Comments pls refer to mobility section for details PT-Balance Assessment Sitting Balance and Reactions Static Sitting Balance Ability Good Dynamic Sitting Balance Ability Fair Standing Balance and Reactions Static Standing Balance Ability Fair Dynamic Standing Balance Ability Fair Device Used FWW M5 PT-IP Objective Assessments Start: 04/02/21 12:03 Freq: NEEDED Status: Active Protocol: Document 04/02/21 10:00 AB (Rec: 04/02/21 12:17 AB [id number]) Orientation Orientation/Cognition Level of Alertness Alert Orientation Name Language Function Ability Hard of Hearing Safety Awareness Decreased Safety Awareness Memory Description Short Term Impaired Gross Range of Motion Lower Extremity ROM Assessment Within Functional Limits Strength Lower Extremity Strength Assessment Left Impaired Hip 3+/5 Knee 3+/5 Coordination Assessment Gross Coordination Gross Coordination WNL Sensation Assessment Sensation Gross Sensation Right LE Impaired,Left LE Impaired Sensation Description Numbness Muscle Tone Muscle Tone WNL Yes M6 PT-IP Treatment Start: 04/02/21 12:03 Freq: NEEDED Status: Active Protocol: Document 04/03/21 14:32 KS (Rec: 04/03/21 14:56 KS [id number]) Physical Therapy Treatment Education Education Provided Precautions,Safety Other Treatments Other Treatment Performed Able to recall 3/3 spinal precautions. M7 PT-IP Assessment and Plan Start: 04/02/21 12:03 Freq: NEEDED Status: Active Protocol: Document 04/03/21 14:32 KS (Rec: 04/03/21 14:56 KS [id number]) PT Summary Assessment and Plan Potential Rehabilitation Potential Good Summary Impairments Pain,ROM,Strength,Balance, Coordination,Sensation,Tone, Cognition,Bed Mobility, Transfers,Gait,Activity Tolerance Progress Towards Goals Slow Progress due to Activity Tolerance Assessment Summary Pt continues to be limited in mobility by low tolerance for activity, weakness, and pain. Pt only agreeable to `15 ft ambulation w/ FWW to get back into bed. Min A for sit<>stand , Mod A for sit<>sup for LE assistance into bed. Requiring increased time w/ mobility that pt credits to pain. If going home, pt will need to improve tolerance for activity , complete stair training and caregiver training. Caregiver training scheduled for 10:30 AM 04/04. Will continue to assess progress. Goals Bed Mobility Goal Standby Assistance Transfer Goal Standby Assistance,Front Wheeled Walker Gait Goal Standby Assistance,Front Wheel Walker Gait Distance 200 Other Goals up/down 3 steps SPC/SUPERINTENDENT SERVICE SBA Days to Meet Goals 5 Frequency of Treatment Frequency Of Treatment Twice a Day Treatment Plan Physical Therapy Treatment Plan Bed Mobility Training,Transfer Training,Gait Training, Therapeutic Exercise,Balance Retraining,Post Op Education, Discharge Planning,Hot or Cold Pack,Neuromuscular Re-ed, Coordination Retraining,Manual Therapy Precautions Lumbar Precautions Log Roll,No Twisting,Limit Bending,Lifting Restriction of 10 lbs,Gait Belt above Incisional Area Recommendations To Nursing Amount of Assist Needed 1 Person Assist Discharge Recommendations PT Discharge Recommendations Home with 24/ Assist Available,Home Health Equipment Needed for Home Before FWW Discharge Transportation Needs at Discharge Private Vehicle,Wheelchair/ Cabulance
--- NOTE | 2021-04-03 15:50 | CM.DPC ---
DCP Continued: Cm called [facility] to refer patient for HH services, have [facility] signed and faxed over referral with H&P, PT/OT notes and progress note to [facility] who stated they will review it and only need us to send DC summary when patient DC home. CM spoke to the patient about possibly SNF VS home with HH and patient is adamantly against SNF placement and will only do home with HH. CM department will call [facility] tomorrow and make sure they can accept the referral and have every thing they need Gabby barrientos RNcover maker
[2021-04-03] MEDS: ATORVASTATIN 20 MG TABLET 40 MG PO (16:56)
[2021-04-03] MEDS: PANTOPRAZOLE DR 40 MG TABLET PO (16:56)
[2021-04-03] MEDS: SENNOSIDES 8.6 MG TABLET 17.2 MG PO (20:09)
[2021-04-03] MEDS: METFORMIN HCL 500 MG TABLET 1000 MG PO (20:09)
[2021-04-04] VITALS (8 sets, daily range): BP systolic 112–138; BP diastolic 58–73; PULSE 74–89; RESP 16–18; TEMP 36.8–38; O2SAT 88–97
[2021-04-04] MEDS: HYDROMORPHONE 0.5 MG INJ IV (01:58)
[2021-04-04] MEDS: ACETAMINOPHEN 325 MG TABLET 650 MG PO (02:04)
[2021-04-04] MEDS: hydrOXYzine pamoate 25 MG CAPSULE PO ×2 (06:32→12:15)
[2021-04-04] MEDS: OXYCODONE IR 5 MG TABLET 10 MG PO ×2 (06:32→10:55)
--- NOTE | 2021-04-04 09:39 | P.DS_ITS ---
History of Present Illness History of Present Illness Date Patient Seen: 04/04/21 Time Patient Seen: 09:39 Chief complaint: TLIF *OPB* Narrative: History and physical is completed in the chart in a prior note. Please refer to that note for this information. Discharge Providers Provider Date of admission: 04/01/21 07:41 Discharge Date: 04/04/21 Primary care physician: Zachary Smith DO Consults: 04/01/21 14:48 Consult to Occupational Therapy Evaluate & Treat Comment: Physician Instructions: Evaluate and treat Consult to Physical Therapy Evaluate & Treat Comment: Physician Instructions: Evaluate and Treat 04/04/21 09:32 Consult to Home Health Routine Comment: Reason For Exam: Post operative s/p L3-L5 fusion Discharge provider: Vadim Kruger MD Summary Hospital Course Discharge Diagnosis: 1. Spinal stenosis, lumbar 2. Post laminectomy syndrome 3. Post hemorrhagic anemia Hospital Course: Patient was admitted to the hospital and taken directly to the operating room on April 01, 2021. He underwent a L3 through L5 decompression and fusion. He has had a stable mild post hemorrhagic anemia. He has had difficulty with mobilization due to pain and a mild case of orthostatic hypotension. These have improved. At the time of this dictation is felt he will be ready for discharge today to home with home health. Status at Discharge Cognitive/behavioral status at discharge: at baseline, oriented Functional status at discharge: uses cane/walker Overall status at discharge: patient is progressing back to baseline Time Spent with Patient Time spent: Less than 30 minutes Exam Vital Signs (past 8 hours): - 04/04/21 02:04 04/04/21 04:53 04/04/21 04:55 Temperature 100.4 F H 98.3 F 98.3 F Pulse Rate 89 76 Respiratory Rate 18 17 Blood Pressure 138/73 127/72 Pulse Oximetry 97 92 04/04/21 07:45 04/04/21 07:50 Temperature 98.7 F Pulse Rate 74 Respiratory Rate 16 Blood Pressure 130/65 Pulse Oximetry 88 L 94 Oxygen Delivery Method Nasal Cannula Oxygen Flow Rate 2 Narrative Exam Narrative: Patient lying comfortably in bed. Light touch is intact in both distal lower extremities. He can dorsiflex and plantar flex his toes and ankles on command. Objective Labs Result Diagrams: 04/02/21 04:50 [facility] Medical History Acid reflux Diabetes (~1999) Eczema Hearing impaired HLD (hyperlipidemia) HTN (hypertension) Lumbar post-laminectomy syndrome Neuropathy Sciatica Scoliosis of lumbosacral region due to degenerative disease of spine in adult Spondylolisthesis Surgical History History of bladder surgery (08/2019) History of carpal tunnel surgery of right wrist History of lumbar surgery (1987) History of lumbar surgery (03/2005) History of surgery (12/2020) Hx of appendectomy Hx of shoulder surgery Hx of tonsillectomy Social History household members: spouse and children Smoking Status: Never smoker alcohol intake: current Discharge Assessment & Plan Assessment and Plan Assessment: Stable postoperative day 3 status post L3 through L5 decompression and fusion. He has a mild, stable post hemorrhagic anemia. He has made some progress with physical therapy and their last note indicates he should be safe for discharge home with home health physical therapy. Plan of Treatment: Discharge to home today after discontinuation of the Mix catheter. Home health has been ordered. Follow-up with Dr. Schilling in 2 weeks. Prescriptions for Percocet for pain control, hydroxyzine for muscle spasm have been called into the pharmacy in [place] where he lives. Discharge Plan Discharge Plan Patient Disposition: Home Health Service Transfer to: Home Health, Other Discharge orders & Medications Prescriptions: New acetaminophen 325 mg Tablet 650 mg PO Q6HR PRN (Reason: Pain, Mild (1-3)) 30 Days 0RF oxycodone 5 mg Tablet 10 mg PO Q4H PRN (Reason: Pain, Severe (7-10)) Qty: 60 0RF hydroxyzine pamoate 25 mg Capsule 25 mg PO Q4HR PRN (Reason: Nausea And Vomiting) Qty: 30 0RF Continued atorvastatin 40 mg Tablet 40 mg PO QPM 0RF metformin 500 mg Tablet 500 mg PO SEEINSTR 0RF Rx Instructions: 500mg qam, 1000mg qpm omeprazole 40 mg Capsule,Delayed Release(Dr/Ec) 40 mg PO QPM 0RF tamsulosin 0.4 mg Capsule 0.4 mg PO BEDTIME 0RF gabapentin 300 mg Capsule 300 mg PO TID 0RF lisinopril-hydrochlorothiazide 20-25 mg Tablet 1 tab PO BID 0RF diphenhydramine-acetaminophen [Tylenol PM Extra Strength] 25-500 mg Tablet 2 tab PO BEDTIME 0RF Discontinued aspirin [Aspir-Low] 81 mg Tablet,Delayed Release (Dr/Ec) 81 mg PO BEDTIME 0RF Follow up/Referrals: Zachary Smith DO [Primary Care Provider] - Luis Manuel Schilling MD [Physician] - 2 Weeks Diet/Activity/Treatments Diet: Diet as Tolerated and Regular Activity: You may ambulate as tolerated. Lift no more than 10 pounds. Cold/Heat Therapy: You may apply ice for pain control for 15 minutes of every hour. Skin/Wound/Dressing Care Report to your healthcare provider any signs of infection, such as:: chills, fever, night sweats, increased pain, unusual drainage and unusual redness Dressing: Keep dressing clean and dry. Visit Report/Discharge Packet Instructions: DI for Prescription Opioid Use, DI for Transforaminal Lumbar Interbody Fusion Stand Alone Forms: Surgery Discharge Discharge Data Primary Care Provider: Zachary Smith
[2021-04-04] MEDS: DOCUSATE 100 MG CAPSULE PO (09:46)
[2021-04-04] MEDS: GABAPENTIN 300 MG CAPSULE PO (09:46)
[2021-04-04] MEDS: hydroCHLOROthiazide 25 MG TABLET PO (09:46)
[2021-04-04] MEDS: METFORMIN HCL 500 MG TABLET PO (09:46)
[2021-04-04] MEDS: lisinopriL 20 MG TABLET PO (09:46)
--- NOTE | 2021-04-04 11:24 | CM.DPC ---
Addendum entered by Sue aVlero R.N. 04/04/21 13:15: P.T. had attempted to work with patient, but having increased pain, weakness. Original plan was for patient to go home today with [facility]. According to P.T, they indicated, patient may be willing to go to skilled. [facility] has no immediate openings. Spoke to Alba at [facility], may have openings on Tuesday. [facility] may have openings next week according to Cynthia. Faxed referrals to both places. Spoke to Breanna at [facility], and she indicated, she may also have openings. P: DCP will continue to work with patient. He may not be able to discharge today if not able to mobilize with P.T. will follow up with patient and spouse. Sue Valero RN/Plant Floor Automation Manager Original Note: DCP Cont: Spoke to Lucas at [facility] and let her know that patient has discharge orders. She indicated, they only need DC Summary, they have orders and face to face. Will fax over DC Summary. Patient is supposed to have caregiver training with spouse this am. Sue Valero RN/Plant Floor Automation Manager
--- NOTE | 2021-04-04 11:36 | PT.IPTN ---
Current Diagnoses Other secondary scoliosis, lumbar region (04/01/21) Spinal stenosis, lumbar region with neurogenic claudication (04/01/21) Postlaminectomy syndrome, not elsewhere classified (04/01/21) Surgery Performed Operation Date: 04/01/21 08:45 Actual Procedures p L3-4, L4-5 TLIF w. posterior instrumentation -Robot(Not Applicable) - Luis Manuel Schilling MD Physical Therapy Treatment Note M2 PT-IP Current Condition Start: 04/02/21 12:03 Freq: NEEDED Status: Active Protocol: Document 04/02/21 10:00 AB (Rec: 04/02/21 12:17 AB [id number]) Physical Therapy Current Condition Current Condition Evaluation Date 04/02/21 Treatment Diagnosis s/o L3-4, L4-5 TLIF; difficulty in walking Onset Date 04/01/21 M3 PT-IP Subjective Start: 04/02/21 12:03 Freq: NEEDED Status: Active Protocol: Document 04/04/21 11:11 KS (Rec: 04/04/21 12:59 KS [id number]) Subjective Physical Therapy Visit Type Type Treatment Note Visit Start Time 11:11 Visit Stop Time 11:36 Total Visit Minutes 25 Number of NATURAL GAS BASIS TRADER Visits 3 Physical Therapy Visit Comments Patient Comments Pt needed encouragement to work w/ PT. Therapy Pain Assessment Pain When Pain Assessed During Mobility Pain Present Pain Present Pain Reported Location Back Intensity 7 Scale Used Numeric (0 - 10) Pain Behaviors Guarding,Moaning,Wincing Pain Management Techniques Distraction,Modification of Treatment,Re-positioning M4 PT-IP Mobility and Gait Start: 04/02/21 12:03 Freq: NEEDED Status: Active Protocol: Document 04/04/21 11:11 KS (Rec: 04/04/21 12:59 KS [id number]) PT-Bed Mobility Assessment Rolling Type of Rolling Log Rolling Level of Assist Minimal Assistance Supine to Sit Supine to Sit Contact Guard Assistance,1 Person Assistance,Head of Bed Elevated,Bedrails Scooting Scooting to Edge of Bed Contact Guard Assistance PT-Transfer Assessment Sit to and From Stand Sit to and from Stand Minimal Assistance,1 Person Assistance,Use of Upper Extremities Equipment Transfer Assistive Device Gait Belt,Front Wheeled Walker Orthotic/Prosthetic Devices or Brace: No Transfers Transfer Destination Chair Transfer Technique pt ambulated w/ FWW Transfer Ability Level of Assist Contact Guard Assistance, Minimal Assistance,1 Person Assistance,Use of Upper Extremities Comments Mobility Comments Pt in bed reporting high level of pain, full body itching, and numbess in R pinky toe and lateral calf. Min A and cues for logroll, CGA for sup<>sit w/ use of bedrails. Min A and cues for hand placement for sit<>Stand. Pts understands gaitbelt application and how to secure FWW/provide assist during sit< >stand. Pt reported R pinky toe sensation returned and less pain when standing, but c /o intense itchiness. Pt ambulated ~10 ft to chair, CGA to Min A for FWW management. Pt continues to ambulate very slowly and cautiously. Cues for arm placement and slow descent when sitting. Pt left in chair w/ all needs in reach and in room. Gait Assessment Gait Gait Assistance Required: Contact Guard Assist,Minimum Assistance,1 Person Assist Distance (Feet) 10 Able to Maintain Weight Bearing Status Yes During Gait Assistive Devices Assistive Device Gait Belt,Front Wheeled Walker Gait Deviations General Gait Pattern Decreased Stride Length, Decreased Feet Clearance, Flexed Trunk Factors Limiting Gait Function Factors Limiting Gait Function Decreased Activity Tolerance, Decreased Sensation,Decreased Strength,Limited Range of Motion,Pain,Poor Balance,Poor Safety Awareness Comments Gait Comments pls refer to mobility section for details Stair Climbing Assessment Comments Stair Climbing Comments Unable to assess due to pt weakness. PT-Balance Assessment Sitting Balance and Reactions Static Sitting Balance Ability Good Dynamic Sitting Balance Ability Fair Standing Balance and Reactions Static Standing Balance Ability Fair Dynamic Standing Balance Ability Fair Device Used FWW M5 PT-IP Objective Assessments Start: 04/02/21 12:03 Freq: NEEDED Status: Active Protocol: Document 04/02/21 10:00 AB (Rec: 04/02/21 12:17 AB [id number]) Orientation Orientation/Cognition Level of Alertness Alert Orientation Name Language Function Ability Hard of Hearing Safety Awareness Decreased Safety Awareness Memory Description Short Term Impaired Gross Range of Motion Lower Extremity ROM Assessment Within Functional Limits Strength Lower Extremity Strength Assessment Left Impaired Hip 3+/5 Knee 3+/5 Coordination Assessment Gross Coordination Gross Coordination WNL Sensation Assessment Sensation Gross Sensation Right LE Impaired,Left LE Impaired Sensation Description Numbness Muscle Tone Muscle Tone WNL Yes M6 PT-IP Treatment Start: 04/02/21 12:03 Freq: NEEDED Status: Active Protocol: Document 04/04/21 11:11 KS (Rec: 04/04/21 12:59 KS [id number]) Physical Therapy Treatment Other Treatments Other Treatment Performed Able to recall 3/3 spinal precautions. Initiated caregiver training w/ pts who was able to apply gaitbelt and appropriately assist pt/secure FWW during sit<>Stand. Discussed SNF - pt and have questions - let P[employer]CEL[employer] E[employer]EL [employer]ORER know. M7 PT-IP Assessment and Plan Start: 04/02/21 12:03 Freq: NEEDED Status: Active Protocol: Document 04/04/21 11:11 KS (Rec: 04/04/21 12:59 KS [id number]) PT Summary Assessment and Plan Potential Rehabilitation Potential Good Summary Impairments Pain,ROM,Strength,Balance, Coordination,Sensation,Tone, Cognition,Bed Mobility, Transfers,Gait,Activity Tolerance Progress Towards Goals Slow Progress due to Pain,Slow Progress due to Activity Tolerance Assessment Summary Pt has low tolerance for activity and increased pain this AM. was present, caregiver training initiated. Pt possibly open to SNF, but prefers to go home however is currently too weak to ambulate further or complete stairs. Will continue to assess progress. Goals Bed Mobility Goal Standby Assistance Transfer Goal Standby Assistance,Front Wheeled Walker Gait Goal Standby Assistance,Front Wheel Walker Gait Distance 200 Other Goals up/down 3 steps SPC/MOLD MAKER SBA Days to Meet Goals 5 Frequency of Treatment Frequency Of Treatment Twice a Day Treatment Plan Physical Therapy Treatment Plan Bed Mobility Training,Transfer Training,Gait Training, Therapeutic Exercise,Balance Retraining,Post Op Education, Discharge Planning,Hot or Cold Pack,Neuromuscular Re-ed, Coordination Retraining,Manual Therapy Precautions Lumbar Precautions Log Roll,No Twisting,Limit Bending,Lifting Restriction of 10 lbs,Gait Belt above Incisional Area Recommendations To Nursing Amount of Assist Needed 1 Person Assist Discharge Recommendations PT Discharge Recommendations Home with 08/11 Assist Available,Home Health,SNF Rehab Equipment Needed for Home Before Pts secured FWW Discharge Transportation Needs at Discharge Private Vehicle,Wheelchair/ Cabulance
--- NOTE | 2021-04-04 11:58 | PC.NURSE ---
Event Note Patient with complaint of new onset right toe numbness. machine scallop cutter MD paged. Orders from MD to continue to monitor numbness, no new orders. Patient still able to discharge home or to rehab. This RN to update patient. Upon reassessment right toe numbness had resolved with change of position.
--- NOTE | 2021-04-04 14:02 | PT.IPTN ---
Current Diagnoses Other secondary scoliosis, lumbar region (04/01/21) Spinal stenosis, lumbar region with neurogenic claudication (04/01/21) Postlaminectomy syndrome, not elsewhere classified (04/01/21) Surgery Performed Operation Date: 04/01/21 08:45 Actual Procedures p L3-4, L4-5 TLIF w. posterior instrumentation -Robot(Not Applicable) - Luis Manuel Schilling MD Physical Therapy Treatment Note M2 PT-IP Current Condition Start: 04/02/21 12:03 Freq: NEEDED Status: Discharge Protocol: Document 04/02/21 10:00 AB (Rec: 04/02/21 12:17 AB [id number]) Physical Therapy Current Condition Current Condition Evaluation Date 04/02/21 Treatment Diagnosis s/o L3-4, L4-5 TLIF; difficulty in walking Onset Date 04/01/21 M3 PT-IP Subjective Start: 04/02/21 12:03 Freq: NEEDED Status: Discharge Protocol: Document 04/04/21 13:38 KS (Rec: 04/04/21 14:41 KS [id number]) Subjective Physical Therapy Visit Type Type Treatment Note Visit Start Time 13:38 Visit Stop Time 14:02 Total Visit Minutes 24 Number of ELECT[employer]SEMBLER Visits 4 Physical Therapy Visit Comments Patient Comments Pt agreeable to work w/ therapy. Therapy Pain Assessment Pain When Pain Assessed During Mobility Pain Present Pain Present Pain Reported M4 PT-IP Mobility and Gait Start: 04/02/21 12:03 Freq: NEEDED Status: Discharge Protocol: Document 04/04/21 13:38 KS (Rec: 04/04/21 14:41 KS [id number]) PT-Bed Mobility Assessment Scooting Scooting to Edge of Bed Contact Guard Assistance PT-Transfer Assessment Sit to and From Stand Sit to and from Stand Contact Guard Assistance,1 Person Assistance,Use of Upper Extremities Equipment Transfer Assistive Device Gait Belt,Front Wheeled Walker Orthotic/Prosthetic Devices or Brace: No Transfers Transfer Destination Wheelchair Transfer Technique pt ambulated w/ FWW Transfer Ability Level of Assist Contact Guard Assistance, Minimal Assistance,1 Person Assistance,Use of Upper Extremities Comments Mobility Comments Pt in chair upon arrival and dressed in anticipation of discharging home. Agreeable to ambulation and stair training . Pt ambulated ~100 ft w/ FWW CGA to stairs and ascended/ descended 3 steps 1 rail, 1 SPC w/ providing CGA. Pt verbalized increased fatigue upon completion of stairs and transferred to w/c CGA for return to room. Pt left in w/c w/ all needs in reach. Gait Assessment Gait Gait Assistance Required: Contact Guard Assist,1 Person Assist Distance (Feet) 100 Able to Maintain Weight Bearing Status Yes During Gait Assistive Devices Assistive Device Gait Belt,Front Wheeled Walker Gait Deviations General Gait Pattern Decreased Stride Length, Decreased Feet Clearance, Flexed Trunk Factors Limiting Gait Function Factors Limiting Gait Function Decreased Activity Tolerance, Decreased Sensation,Decreased Strength,Limited Range of Motion,Pain,Poor Balance,Poor Safety Awareness Comments Gait Comments Pt showed increased stride and briana this PM, but overall continued to have slow gait w/ decreased foot clearance and heavy use of BUE on FWW. Stair Climbing Assessment Evaluation Level of Assist On Stairs Contact Guard Assistance,1 Person Assistance Devices Stair Climbing Assistive Devices Straight Cane,Left Railing Technique/Endurance Stair Climbing Direction Ascend and Descend Stair Climbing Technique Step to Step Number of Steps Climbed 3 Stair Climbing Set # Repetitions (reps) 1 Comments Stair Climbing Comments Pt ascended/descended 3 steps w/ L rail and SPC in R CGA step to pattern w/ providing assist. Pt expressed fatigue and relief after completion. Pt and state they feel safe to do stairs at home. PT-Balance Assessment Sitting Balance and Reactions Static Sitting Balance Ability Good Dynamic Sitting Balance Ability Fair Standing Balance and Reactions Static Standing Balance Ability Fair Dynamic Standing Balance Ability Fair Device Used FWW M5 PT-IP Objective Assessments Start: 04/02/21 12:03 Freq: NEEDED Status: Discharge Protocol: Document 04/02/21 10:00 AB (Rec: 04/02/21 12:17 AB [email or web address]) Orientation Orientation/Cognition Level of Alertness Alert Orientation Name Language Function Ability Hard of Hearing Safety Awareness Decreased Safety Awareness Memory Description Short Term Impaired Gross Range of Motion Lower Extremity ROM Assessment Within Functional Limits Strength Lower Extremity Strength Assessment Left Impaired Hip 3+/5 Knee 3+/5 Coordination Assessment Gross Coordination Gross Coordination WNL Sensation Assessment Sensation Gross Sensation Right LE Impaired,Left LE Impaired Sensation Description Numbness Muscle Tone Muscle Tone WNL Yes M6 PT-IP Treatment Start: 04/02/21 12:03 Freq: NEEDED Status: Discharge Protocol: Document 04/04/21 13:38 KS (Rec: 04/04/21 14:41 KS [id number]) Physical Therapy Treatment Education Education Provided Precautions,Safety Other Treatments Other Treatment Performed Discussed at home safety. M7 PT-IP Assessment and Plan Start: 04/02/21 12:03 Freq: NEEDED Status: Discharge Protocol: Document 04/04/21 13:38 KS (Rec: 04/04/21 14:41 KS [id number]) PT Summary Assessment and Plan Potential Rehabilitation Potential Good Summary Impairments Pain,ROM,Strength,Balance, Coordination,Sensation,Tone, Cognition,Bed Mobility, Transfers,Gait,Activity Tolerance Progress Towards Goals Slow Progress due to Pain,Slow Progress due to Activity Tolerance Assessment Summary Pt showed increased tolerance for activity, able to ambulate 100 ft w/ FWW and ascended/ descend 3 steps w/ CGA and cues. Pt expressed fatigue following but states he feels safe and able to complete at home. Pt and would benefit from continued caregiver training to assess safety and recall. 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 Days to Meet Goals 5 Frequency of Treatment Frequency Of Treatment Twice a Day Treatment Plan Physical Therapy Treatment Plan Bed Mobility Training,Transfer Training,Gait Training, Therapeutic Exercise,Balance Retraining,Post Op Education, Discharge Planning,Hot or Cold Pack,Neuromuscular Re-ed, Coordination Retraining,Manual Therapy Precautions Lumbar Precautions Log Roll,No Twisting,Limit Bending,Lifting Restriction of 10 lbs,Gait Belt above Incisional Area Recommendations To Nursing Amount of Assist Needed 1 Person Assist Discharge Recommendations PT Discharge Recommendations Home with 24/7 Assist Available,Home Health,SNF Rehab Equipment Needed for Home Before Pts secured FWW Discharge Transportation Needs at Discharge Private Vehicle,Wheelchair/ Cabulance
== END 2021-04-04 14:26 | disposition home or self-care (01) | DRG 455 ==
LOC: OR 07:41 → AC 07:42
PROVIDERS: Admitting Provider Orthopaedic Surgery Orthopaedic Surgery of the Spine; PCP Family Medicine; Referring Provider Orthopaedic Surgery Orthopaedic Surgery of the Spine; Visit Provider Orthopaedic Surgery Orthopaedic Surgery of the Spine
PROC: 0SG10AJ Fusion of 2 or more Lumbar Vertebral Joints with Interbody Fusion Device, Posterior Approach, Anterior Column, Open Approach (ICD-10-PCS; principal; 2021-04-01 08:45)
DX: M48.061 Spinal stenosis, lumbar region without neurogenic claudication (principal); I95.81 Postprocedural hypotension; M41.56 Other secondary scoliosis, lumbar region; R50.82 Postprocedural fever; G89.18 Other acute postprocedural pain; M43.16 Spondylolisthesis, lumbar region; M96.1 Postlaminectomy syndrome, not elsewhere classified; I10 Essential (primary) hypertension; E78.5 Hyperlipidemia, unspecified; E11.9 Type 2 diabetes mellitus without complications; K21.9 Gastro-esophageal reflux disease without esophagitis; Z79.84 Long term (current) use of oral hypoglycemic drugs
CPT/HCPCS: 36415; 72100; 76000; 82962; 85014; 85018; 87635; 93005; 93010; 97116; 97162; 97165; 97530; 97535; C1776; C9803; C9290; J0330; J0690; J1100; J1170; J2250; J2405; J2704; J3010